=== PATIENT | female | born 1995 | race African-American/Black ===

== ENCOUNTER 2024-09-11 20:04 | Emergency (ER) | payer OTHER ==
[~2024-09-11] VITALS: Ht 165.1 cm; Wt 75.5 kg
[2024-09-11 20:31] VITALS: O2SAT 99
[2024-09-11] MEDS: BACITRACIN ZINC OINT UDPKT TOP ONE (21:15)
[2024-09-11] MEDS ORDERED: CEPH500T MT (21:16)
[2024-09-11] MEDS ORDERED: SULF1TAB48 MT (21:16)
[2024-09-11] MEDS ORDERED: BO1 TP (21:16)
[2024-09-11 21:36] VITALS: BP 140/80; PULSE 58; RESP 18; TEMP 36.8; O2SAT 99
== END 2024-09-11 21:40 | disposition home or self-care (01) ==
LOC: ER 20:04
DX: S80.211A Abrasion, right knee, initial encounter (principal); Z79.899 Other long term (current) drug therapy; W01.0XXA Fall on same level from slipping, tripping and stumbling without subsequent striking against object, initial encounter; Y93.89 Activity, other specified; Y92.89 Other specified places as the place of occurrence of the external cause; Y99.8 Other external cause status
CPT/HCPCS: 99283